=== PATIENT | male | born 1970 | race Caucasian/White ===

== ENCOUNTER 2022-04-22 03:49 | Emergency (ER) | payer SELFPAY ==
[~2022-04-22] VITALS: Ht 188 cm; Wt 116.3 kg
[2022-04-22 03:49] VITALS: BP 135/88
[2022-04-22] MEDS ORDERED: IBUP-1022 PO (04:08)
== END 2022-04-22 05:33 | disposition left against medical advice (07) ==
LOC: M ED 03:49
DX: Z53.29 Procedure and treatment not carried out because of patient's decision for other reasons (principal)

== ENCOUNTER 2023-12-21 09:06 | Emergency (ER) | payer SELFPAY ==
[~2023-12-21] VITALS: Ht 188 cm; Wt 127.2 kg
[~2023-12-21 09:06] MED LIST: IBUP-1022 PO
[2023-12-21 11:02] VITALS: BP 131/79; TEMP 96.8; O2SAT 98
[2023-12-21] MEDS: traMADol 50 MG TAB PO ONE (11:15)
[2023-12-21] MEDS ORDERED: ACET300T48 PO (11:26)
[2023-12-21] MEDS ORDERED: IBUP-1022 PO (11:26)
[2023-12-21] MEDS: ACETAMINOPH W/CODEINE #3 TAB UD PO ONE (11:35)
== END 2023-12-21 11:40 | disposition home or self-care (01) ==
LOC: M ED 09:06
DX: I80.02 Phlebitis and thrombophlebitis of superficial vessels of left lower extremity (principal); F17.200 Nicotine dependence, unspecified, uncomplicated; F12.90 Cannabis use, unspecified, uncomplicated

== ENCOUNTER 2024-12-01 15:48 | Emergency (ER) | payer OTHER, SELFPAY ==
[~2024-12-01] VITALS: Ht 188 cm; Wt 128.4 kg
[~2024-12-01 15:48] MED LIST changes: +ACET300T48 PO
[2024-12-01 16:56] LABS: KETONE, URINE MANUAL REFLEX NEGATIVE (NEGATIVE); NITRITE, URINE MANUAL RFX NEGATIVE (NEGATIVE); PROTEIN, URINE MANUAL REFLEX NEGATIVE (NEGATIVE); SP GRAVITY,URINE MANUAL REFLEX 1.025 (1.002-1.035); UROBILINOGEN, UA MANUAL REFLEX NORMAL (NORMAL)
[2024-12-01 17:07] LABS: HYALINE CAST, URINE RFX NONE SEEN /lpf (0-1); MICROSCOPIC EXAM RFX PERFORMED; MUCUS, URINE REFLEX LARGE AMOUNT (NEGATIVE); RBC, URINE MAN REFLEX 0-1 /hpf (0-3); SQUAMOUS EPITHELIAL URINE RFX NONE SEEN /hpf (SMALL AMT); WBC, URINE MAN RFX 0-1 /hpf (0-3)
[2024-12-01 17:16] LABS: HEMATOCRIT 44.5 % (42.0-52.0); HEMOGLOBIN 15.4 g/dl (13.5-17.5); MEAN CORPUSCULAR HEMOGLOBIN 29.4 pg (27.0-33.0); MEAN CORPUSCULAR HGB CONC 34.6 g/dl (32.0-36.5); MEAN CORPUSCULAR VOLUME 85.1 fl (80.0-96.0); PLATELET COUNT, AUTOMATED 175 10^3/uL (150-450); RED BLOOD COUNT 5.23 10^6/uL (4.30-6.10); WHITE BLOOD COUNT 8.4 10^3/uL (4.0-10.0)
[2024-12-01 17:40] LABS: BLOOD UREA NITROGEN 19 MG/DL (9-23); CALCIUM LEVEL 8.7 MG/DL (8.5-10.1); CARBON DIOXIDE LEVEL 25 MMOL/L (20-31); CHLORIDE LEVEL 106 MMOL/L (98-107); CREATININE FOR GFR 0.92 MG/DL (0.70-1.30); GLOMERULAR FILTRATION RATE > 60.0 (>56); GLUCOSE, FASTING 98 MG/DL (60-100); POTASSIUM SERUM 4.3 MMOL/L (3.5-5.1); SODIUM LEVEL 140 MMOL/L (136-145)
[2024-12-01 18:24] LABS: Trichomonas vaginalis (AMP) NOT DETECTED (NEGATIVE)
[2024-12-01 18:48] LABS: GC DNA AMPLIFICATION NEGATIVE (NEGATIVE)
[2024-12-01] MEDS ORDERED: HYDR-3713 PO (20:22)
[2024-12-01] MEDS: NORCO, ANEXSIA 5/325MG TABLET (HYDROcodone/ACETAMINOPHEN) PO ONE (20:30)
[2024-12-01 20:39] VITALS: BP 140/98; TEMP 97.8; O2SAT 98
== END 2024-12-01 20:42 | disposition home or self-care (01) ==
LOC: M ED 15:48
DX: N43.3 Hydrocele, unspecified (principal); N50.3 Cyst of epididymis; M06.9 Rheumatoid arthritis, unspecified; F17.200 Nicotine dependence, unspecified, uncomplicated; F12.10 Cannabis abuse, uncomplicated; Z88.5 Allergy status to narcotic agent

== ENCOUNTER → 2025-01-26 | Outpatient (REF) | payer OTHER ==
[~2025-01-26] MED LIST changes: +HYDR-3713 PO
[2025-01-26 12:56] LABS: BASO % 0.6 % (0.0-1.0); EOS # 0.2 10^3/uL (0.0-0.5); EOS % 2.8 % (0.0-3.0); HEMATOCRIT 47.8 % (42.0-52.0); HEMOGLOBIN 15.9 g/dl (13.5-17.5); LYMPH # 2.8 10^3/uL (1.5-5.0); LYMPH % 38.9 % (24.0-44.0); MEAN CORPUSCULAR HEMOGLOBIN 28.6 pg (27.0-33.0); MEAN CORPUSCULAR HGB CONC 33.3 g/dl (32.0-36.5); MEAN CORPUSCULAR VOLUME 86.1 fl (80.0-96.0); MONO # 0.6 10^3/uL (0.0-0.8); MONO % 7.8 % (2.0-8.0); NEUTROPHILS # 3.6 10^3/uL (1.5-8.5); NEUTROPHILS % 49.6 % (36.0-66.0); PLATELET COUNT, AUTOMATED 183 10^3/uL (150-450); RED BLOOD COUNT 5.55 10^6/uL (4.30-6.10); WHITE BLOOD COUNT 7.2 10^3/uL (4.0-10.0)
[2025-01-26 12:59] LABS: PSA SCREENING 0.89 NG/ML (< 4.00)
[2025-01-26 13:03] LABS: ERYTHROCYTE SEDIMENTATION RATE 32 mm/hr (0-20); RHEUMATOID FACTOR QUANT < 3.5 IU/ML (<14); THYROID STIMULATING HORMONE 3.798 uIU/ML (0.55-4.78)
[2025-01-26 13:04] LABS: ALBUMIN 3.7 G/DL (3.2-5.2); ALKALINE PHOSPHATASE 79 U/L (40-129); ALT/SGPT 26 U/L (7.0-40); AST/SGOT 19 U/L (<34); BILIRUBIN,TOTAL 0.5 MG/DL (0.3-1.2); BLOOD UREA NITROGEN 15 MG/DL (9-23); C REACTIVE PROTEIN QUANTITATIV 1.43 MG/DL (<1.0); CALCIUM LEVEL 9.1 MG/DL (8.5-10.1); CARBON DIOXIDE LEVEL 26 MMOL/L (20-31); CHLORIDE LEVEL 110 MMOL/L (98-107); CHOLESTEROL LEVEL 220 MG/DL (<200); CHOLESTEROL RISK RATIO 8.23 (<5); CREATININE FOR GFR 0.97 MG/DL (0.70-1.30); GLOMERULAR FILTRATION RATE > 60.0 (>56); GLUCOSE, FASTING 91 MG/DL (60-100); HDL CHOLESTEROL 26.7 MG/DL (>40); LDL CHOLESTEROL 150.3 MG/DL (<100); NON-HDL-C 193.3 MG/DL; POTASSIUM SERUM 4.4 MMOL/L (3.5-5.1); SODIUM LEVEL 141 MMOL/L (136-145); TOTAL PROTEIN 7.2 G/DL (5.7-8.2); TRIGLYCERIDES LEVEL 215 MG/DL (<150)
[2025-01-26 13:18] LABS: HEMOGLOBIN A1c 5.4 % (4.0-6.0)
[2025-01-30 14:13] LABS: SSA SJOGRENS A <1.0 NEG AI (<1.0 NEG); SSB SJOGRENS B <1.0 NEG AI (<1.0 NEG)
[2025-01-31 14:57] LABS: ANA PATTERN Nuclear, Homogeneous (NEGATIVE); ANA PATTERN 2 Nuclear, Speckled; ANA SCREEN, IFA POSITIVE (NEGATIVE)
[2025-02-01 18:17] LABS: HLA-B27 Negative (Negative)
== END ==
LOC: M LAB REF 12:04
PROVIDERS: ATTEND Student in an Organized Health Care Education/Training Program
DX: M35.3 Polymyalgia rheumatica (principal); Z68.37 Body mass index [BMI] 37.0-37.9, adult; Z12.5 Encounter for screening for malignant neoplasm of prostate

== ENCOUNTER → 2025-02-10 | Outpatient (REF) | payer OTHER ==
[2025-02-10 17:16] LABS: APPEARANCE, URINE CLEAR (CLEAR); BACTERIA, URINE AUTO NEGATIVE (NEGATIVE); BILIRUBIN, URINE AUTO NEGATIVE (NEGATIVE); BLOOD, URINE BLOOD NEGATIVE (NEGATIVE); COLOR, URINE YELLOW (YELLOW); GLUCOSE, URINE (UA) AUTO NEGATIVE (NEGATIVE); KETONE, URINE AUTO NEGATIVE (NEGATIVE); LEUKOCYTE ESTERASE, URINE AUTO NEGATIVE (NEGATIVE); MUCUS, URINE SMALL (NEGATIVE); NITRITE, URINE AUTO NEGATIVE (NEGATIVE); PROTEIN, URINE AUTO NEGATIVE (NEGATIVE); RBC, URINE AUTO 0 /HPF (0-3); SPECIFIC GRAVITY URINE AUTO 1.019 (1.002-1.035); SQUAMOUS EPITHELIAL CELL UR AU 0 /HPF (0-6); UROBILINOGEN, URINE AUTO 0.2 mg/dL (0.0-2.0); WBC, URINE AUTO 0 /HPF (0-3)
== END ==
LOC: M SMT 16:52
PROVIDERS: ATTEND Nurse Practitioner Family
DX: R30.0 Dysuria (principal)

== ENCOUNTER → 2025-02-27 | Outpatient (CLI) | payer OTHER | LOC: M RAD 07:42 | PROVIDERS: ATTEND Student in an Organized Health Care Education/Training Program | DX: R91.1 Solitary pulmonary nodule (principal) ==

== ENCOUNTER → 2025-06-19 | Outpatient (CLI) | payer OTHER ==
[~2025-06-19] MED LIST changes: +ATOR1TAB21 PO; +AUGM12TA11 PO; +MELO15TA28 PO
== END ==
LOC: M RAD 08:33
PROVIDERS: ATTEND Student in an Organized Health Care Education/Training Program
DX: R91.1 Solitary pulmonary nodule (principal); J84.9 Interstitial pulmonary disease, unspecified; J43.9 Emphysema, unspecified

== ENCOUNTER 2025-10-21 17:42 | Emergency (ER) | payer OTHER ==
[~2025-10-21] VITALS: Ht 188 cm; Wt 122.6 kg
[~2025-10-21 17:42] MED LIST changes: -IBUP-1022 PO; +IBUP600T42 PO
[2025-10-21] MEDS ORDERED: MAPA500C (17:52)
[2025-10-21] MEDS: ONDANSETRON 4MG ORAL DISINTEGRATING TAB PO ONE (20:33)
[2025-10-21] MEDS: IBUPROFEN 600 MG TAB PO ONE (20:51)
[2025-10-21] MEDS: ACETAMINOPHEN 500 MG TAB PO ONE (20:52)
[2025-10-21] MEDS: KETOROLAC 30 MG/ML 1 ML VIAL IV ONE (21:14)
[2025-10-21] MEDS ORDERED: ONDANSETRON 4MG/2ML VIAL IV ONE (21:50)
[2025-10-21] MEDS ORDERED: MORPHINE 2 MG/ML 1 ML VIAL IV ONE (21:50)
[2025-10-21 23:01] LABS: BASO # 0.0 10^3/uL (0.0-0.2); BASO % 0.3 % (0.0-1.0); EOS # 0.2 10^3/uL (0.0-0.5); EOS % 1.6 % (0.0-3.0); LYMPH # 2.3 10^3/uL (1.5-5.0); LYMPH % 24.0 % (24.0-44.0); MONO # 0.7 10^3/uL (0.0-0.8); MONO % 7.7 % (2.0-8.0); NEUTROPHILS # 6.3 10^3/uL (1.5-8.5); NEUTROPHILS % 66.1 % (36.0-66.0); PLATELET COUNT, AUTOMATED 137 10^3/uL (150-450)
[2025-10-22 00:12] LABS: CALCIUM LEVEL 8.8 MG/DL (8.5-10.1); CARBON DIOXIDE LEVEL 26 MMOL/L (20-31); CHLORIDE LEVEL 107 MMOL/L (98-107); CREATININE FOR GFR 0.97 MG/DL (0.70-1.30); GLOMERULAR FILTRATION RATE > 90.0 (>56); POTASSIUM SERUM 3.8 MMOL/L (3.5-5.1); SODIUM LEVEL 140 MMOL/L (136-145)
[2025-10-22] MEDS ORDERED: CEPHALEXIN 500 MG CAP PO ONE (00:20)
[2025-10-22] MEDS ORDERED: CEPH500C PO (00:21)
[2025-10-22] MEDS ORDERED: INDO50CA91 PO (00:21)
[2025-10-22 00:32] VITALS: BP 135/82; TEMP 97.3; O2SAT 97
[2025-10-22] MEDS: CEPHALEXIN 500 MG CAP PO ONE (00:34)
== END 2025-10-22 00:38 | disposition home or self-care (01) ==
LOC: M ED 17:42
DX: L03.116 Cellulitis of left lower limb (principal); E78.5 Hyperlipidemia, unspecified; M19.90 Unspecified osteoarthritis, unspecified site; Z86.718 Personal history of other venous thrombosis and embolism; F17.200 Nicotine dependence, unspecified, uncomplicated; Z79.899 Other long term (current) drug therapy; Z88.5 Allergy status to narcotic agent
CPT/HCPCS: 73610; 80048; 84550; 85025; 85652; 86140; 87040; 93971; 96374; 99284; J1885